=== PATIENT | female | born 1945 | race Caucasian/White ===

== ENCOUNTER 2020-10-13 19:55 | Emergency (ER) | payer MEDICARE, OTHER ==
--- NOTE | 2020-10-13 20:29 | EDM.PDOC ---
ED HPI GENERAL MEDICAL PROBLEM - General Chief Complaint: Chest Pain Stated Complaint: CATCH IN CHEST THAT MAKE HER COUGH Time Seen by Provider: 10/13/20 20:17 Source of Information: Reports: Patient, Family (spouse) History Limitations: Reports: No Limitations - History of Present Illness INITIAL COMMENTS - FREE TEXT/NARRATIVE: 75-year-old female presents to the ED complaining of recurrent bouts of central retrosternal chest discomfort. She states it is like a pinching type event that then makes her cough. The cough is nonproductive. It started about 3-1/2 weeks ago but has become more regular and frequent over the last 2 days. She is not suffering any odynophagia. It is not worsened by activity such as walking. She has a history of GERD and takes omeprazole 20 mg daily. She does report that she was on meloxicam daily for the last 23 days and finished it yesterday. She has no known heart disease but that is what brought her to the ED i.e. concern for heart attack. She denies any dyspnea on exertion. No known coronary artery disease. No history of COVID-19 illness. Onset: Gradual Onset Date: 09/19/20 Duration: Day(s):, Getting Worse (Were frequent and more intense the last 2 days. Central chest discomfort) Location: Reports: Chest (Central chest discomfort which is intermittent.) Quality: Reports: Other Severity: Moderate (Cry more as a pinching sensation suggestive of possible esophageal spasm.) Improves with: Reports: None Worsens with: Reports: None Context: Denies: Activity, Exercise, Lifting, Sick Contact, Trauma, Other Associated Symptoms: Reports: Chest Pain (Cough occurs after the pinching sensation in her retrosternal chest.), Cough. Denies: No Other Symptoms ( See history of present illness), Confusion, cough w sputum, Diaphoresis, Fever/Chills, Headaches, Loss of Appetite, Malaise, Nausea/Vomiting, Rash, Seizure, Shortness of Breath, Syncope, Weakness Treatments [employer]GER TRANSPORTATION: Reports: Other (see below) Middle Chest Pain Score (Numeric/FACES): 4 - Related Data Allergies Allergy/AdvReac Type Severity Reaction Status Date / Time phosphorus Allergy Nausea Uncoded 10/13/20 20:12 Home Meds: Home Meds Omeprazole 20 mg PO DAILY PRN 03/13/16 [History] Rosuvastatin Calcium [Crestor] 5 mg PO Q2D 03/13/16 [History] Dicyclomine [Bentyl] 20 mg PO Q6H PRN #10 tablet 10/13/20 [Rx] Past Medical History - Past Health History Medical/Surgical History: Denies Medical/Surgical History HEENT History: Reports: Impaired Vision Cardiovascular History: Reports: High Cholesterol Gastrointestinal History: Reports: GERD, Hiatal Hernia - Infectious Disease History Infectious Disease History: Reports: Chicken Pox, Measles, Mumps, Novel Coronavirus - Past Surgical History HEENT Surgical History: Reports: Naso-Sinus Surgery Female Surgical History: Reports: Hysterectomy Social & Family History - Tobacco Use Tobacco Use Status *Q: Never Tobacco User - Living Situation & Occupation Living situation: Reports: Occupation: Retired ED ROS GENERAL - Review of Systems Review Of Systems: See Below Constitutional: Denies: Fever, Chills, Malaise, Weakness, Fatigue, Decreased Appetite, Weight Loss HEENT: Reports: Glasses Respiratory: Reports: Cough. Denies: Shortness of Breath, Wheezing, Pleuritic Chest Pain, Sputum, Hemoptysis (Nonproductive) Cardiovascular: Reports: Chest Pain (Intermittent central chest discomfort that makes her cough.), Blood Pressure Problem. Denies: Claudication, Dyspnea on Exertion, Edema, Lightheadedness, Orthopnea, Palpitations Endocrine: Reports: No Symptoms GI/Abdominal: Reports: Constipation (History of GERD but well controlled with omeprazole daily.), Other : Reports: Frequency ( Rare problems with constipation), Incontinence (Occasional stress and urge components.) Musculoskeletal: Reports: No Symptoms Skin: Reports: No Symptoms Neurological: Reports: No Symptoms Psychiatric: Reports: No Symptoms Hematologic/Lymphatic: Reports: No Symptoms Immunologic: Reports: No Symptoms ED EXAM, GENERAL - Physical Exam Exam: See Below Exam Limited By: No Limitations General Appearance: Alert, WD/WN, No Apparent Distress, Other (Temperature is 36.2 degrees. Heart rate 72 in sinus respiratory 16 with O2 sats of 98% room air BP slightly elevated at 181/92. This subsequently come down to 129/68.) Eye Exam: Bilateral Eye: Normal Inspection (No scleral icterus or blepharal pallor.), PERRL Throat/Mouth: Normal Inspection, Normal Lips, Normal Teeth, Normal Oropharynx Head: Atraumatic, Normocephalic Neck: Normal Inspection, Supple, Non-Tender, Full Range of Motion. No: Lymphadenopathy (L), Lymphadenopathy (R) Respiratory/Chest: No Respiratory Distress, Lungs Clear, Normal Breath Sounds, No Accessory Muscle Use Cardiovascular: Normal Peripheral Pulses, Regular Rate, Rhythm, No Edema, No Gallop, No Murmur, No Rub, Other (Could not elicit any pain on firm palpation of her ribs or costochondral joints.) Peripheral Pulses: 2+: Carotid (L), Carotid (R), Posterior Tibial (L), Posterior Tibial (R), Dorsalis Pedis (L), Dorsalis Pedis (R) GI/Abdominal: Normal Bowel Sounds, Soft, Non-Tender, No Organomegaly, No Abnormal Bruit, No Mass, Pelvis Stable, Other (Healed infraumbilical midline scar from previous hysterectomy. Ovaries were retained.) Back Exam: Normal Inspection, Full Range of Motion. No: CVA Tenderness (L), CVA Tenderness (R) Extremities: Normal Inspection, Normal Range of Motion, Non-Tender, No Pedal Edema Neurological: Alert, Oriented, CN II-XII Intact, Normal Cognition Psychiatric: Normal Affect, Normal Mood Skin Exam: Warm, Dry, Intact, Normal Color, No Rash #1 Interpretation EKG Date: 10/13/20 Time: 20:23 Rhythm: NSR Rate (Beats/Min): 61 Cowden: LAD-Left Cowden Deviation (Left axis deviation of -41 degrees.) P-Wave: Enlarged (Left atrial hypertrophy pattern) QRS: Other (There is evidence of left ventricular perjury pattern with tall R waves in V1left anterior fascicular block pattern there is a Q wave in V1 normal Q wave in V2 and near Q wave in lead I. V3 with poor R wave progression after this. Give some consideration to a anteroseptal myocardial infarction in the past. Similarly there are new Q waves in leads III and aVF therefore consider old inferior wall myocardial infarction.) ST-T: Other (Unspecific T wave changes with flattening in aVF and V3.) QT: Normal EKG Interpretation Comments: Abnormal ECG Course - Vital Signs Last Recorded V/S: Last Vital Signs Temp 36.2 C 10/13/20 20:05 Pulse 68 10/13/20 22:19 Resp 16 10/13/20 22:19 BP 133/78 10/13/20 22:19 Pulse Ox 99 10/13/20 22:19 - Orders/Labs/Meds Labs: Laboratory Tests 10/13/20 10/13/20 10/13/20 Range/Units 20:37 20:37 20:37 WBC 4.99 (3.98-10.04) K/mm3 RBC 4.54 (3.98-5.22) M/mm3 Hgb 13.8 (11.2-15.7) gm/dl Hct 41.7 (34.1-44.9) % MCV 91.9 (79.4-94.8) fl MCH 30.4 (25.6-32.2) pg MCHC 33.1 (32.2-35.5) g/dl RDW Std Deviation 43.0 (36.4-46.3) fL Plt Count 136 L (182-369) K/mm3 MPV 11.7 (9.4-12.3) fl Neut % (Auto) 50.9 (34.0-71.1) % Lymph % (Auto) 31.7 (19.3-51.7) % [place] % (Auto) 14.4 H (4.7-12.5) % Eos % (Auto) 2.6 (0.7-5.8) Baso % (Auto) 0.2 (0.1-1.2) % Neut # (Auto) 2.54 (1.56-6.13) K/mm3 Lymph # (Auto) 1.58 (1.18-3.74) K/mm3 [place] # (Auto) 0.72 H (0.24-0.36) K/mm3 Eos # (Auto) 0.13 (0.04-0.36) K/mm3 Baso # (Auto) 0.01 (0.01-0.08) K/mm3 Sodium 145 (136-145) mEq/L Potassium 4.3 (3.5-5.1) mEq/L Chloride 108 H (98-107) mEq/L Carbon Dioxide 25 (21-32) mEq/L Anion Gap 16.3 H (5-15) BUN 24 H (7-18) mg/dL Creatinine 1.1 H (0.55-1.02) mg/dL Est Cr Clr Drug Dosing 40.09 mL/min Estimated GFR (MDRD) 48 (>60) mL/min BUN/Creatinine Ratio 21.8 H (14-18) Glucose 112 (83-115) mg/dL Calcium 9.7 (8.5-10.1) mg/dL Magnesium 2.0 (1.8-2.4) mg/dl Total Bilirubin 0.6 (0.2-1.0) mg/dL AST 20 (15-37) U/L ALT 29 (14-59) U/L Alkaline Phosphatase 65 (46-116) U/L CK-MB (CK-2) 3.9 H (0-3.6) ng/ml Troponin I < 0.017 (0.00-0.056) ng/mL C-Reactive Protein 0.2 (<1.0) mg/dL NT-Pro-B Natriuret Pep 89 (0-450) pg/mL Total Protein 6.6 (6.4-8.2) g/dl Albumin 3.6 (3.4-5.0) g/dl Globulin 3.0 gm/dL Albumin/Globulin Ratio 1.2 (1-2) Meds: Medications Discontinued Medications Generic Name Dose Route Start Last Admin Trade Name Freq PRN Reason Stop Dose Admin Dicyclomine HCl 20 mg 10/13/20 22:13 10/13/20 22:19 Bentyl PO 10/13/20 22:14 20 mg ONETIME ONE Administration - Radiology Interpretation Free Text/Narrative:: 75-year-old female attends the ED with recurrent bouts of central chest pinching discomfort. It is not associated with a feeling of need to burp or belch. She is not experiencing any odynophagia. It is right in the center of her sternum and she was concerned it may be her heart. The pain started about 3 weeks ago but has become more intense and more regular over the last 48 hours. Of note both her and her had COVID-19 diagnosed early July I believe August 09. Both suffered very minimal side effects from COVID-19 with nasal congestion cold symptoms minimal cough and no GI symptoms. There was transient loss of sense of taste and smell which is now recovered. Patient just finished a 23-day course of meloxicam but did not appreciate any increased heartburn or dyspepsia while on medication which he finished yesterday. She is also on omeprazole 20 mg once daily. She denies any pain when she deep breathes. She states when the tickle feeling occurs in her central chest it makes her cough. The cough is nonproductive. No hemoptysis. - Re-Assessments/Exams Free Text/Narrative Re-Assessment/Exam: 10/13/20 21:09 chest x-ray is done portable and is within normal limits. Lung parenchyma parenchyma are is clear. Cardiac silhouette is normal mediastinum is normal. 10/13/20 21:31 White count is normal at 4.99. Differential is 51% neutrophils. Hemoglobin 13.8 with hematocrit of 41.7. It is low normal at 136,000. Possibly a residual recent COVID-19 illness. Sodium is 145 with a potassium of 4.3. Chloride slightly elevated at 108. Bicarb 25. Anion gap is 16.3 with a BUN of 24 and creatinine of 1.1. GFR is 48. Glucose is 112 with a calcium of 9.7. Magnesium normal at 2.0. Liver function normal. CK-MB fraction mildly elevated at 3.9. Awaiting troponin I assessment. C-reactive protein is 0.2 BNP is 89 total protein is 6.6 with an albumin fraction of 3.6. 10/13/20 21:47 Troponin is less than 0.017. Departure - Departure Time of Disposition: 22:13 Disposition: Home, Self-Care 01 Reason for Transfer *Q: Other Condition: Fair Clinical Impression: Non-cardiac chest pain, Esophageal spasm Prescriptions: Dicyclomine [Bentyl] 20 mg PO Q6H PRN #10 tablet PRN Reason: intermittent cnetral chest fortino Instructions: Esophageal Spasm, Nonspecific Chest Pain, Adult, [id number] Referrals: Niels Jeffery MD [Primary Care Provider] - Forms: ED Department Discharge Additional Instructions: Evaluation in the emergency room tonight in regards to intermittent central chest discomfort which she described as a pinching sensation I interpret as a spasm-like sensation not associated with burping belching or heartburn. It does seem to make you cough. This may be residual from COVID-19 illness that you had in early July with inflammation of the vagus nerve that controls motility of the food pipe and stomach. Chest x-ray was within normal limits and evaluation of heart markers for heart attack were normal there were no blood clots in the lungs. Liver and kidneys are functioning normally as well. I think the other possibility is recent use of meloxicam for 3 weeks may have caused some i nflammation of the stomach and food pipe and cause esophageal spasm. At this time I suggest using her Prilosec 20 mg at bedtime. Use Bentyl 20 mg tablet by mouth every 6-8 hours as necessary for relief of similar type pain. If not better by Saturday next week then I want you to see your primary care practitioner to arrange a upper GI endoscopy to evaluate the inner aspect of the esophagus. Sepsis Event Note (ED) - Evaluation Sepsis Screening Result: No Definite Risk
[2020-10-13] MEDS ORDERED: Dicyclomine 10 MG Cap PO ONE (22:13)
[2020-10-13 22:20] VITALS: BP 133/78; PULSE 68
--- NOTE | 2020-10-14 08:03 | CR ---
Chest: Portable view of the chest was obtained. Comparison: No prior chest imaging is available. Heart size and mediastinum are normal. Lungs are clear with no acute parenchymal change. Slight scoliosis is noted within the spine with mild degenerative change within the spine. Impression: 1. Nothing acute is appreciated on portable chest x-ray. Diagnostic code #2
== END 2020-10-13 22:26 | disposition home or self-care (01) ==
LOC: JD.ED 19:55
DX: K22.4 Dyskinesia of esophagus (principal); E78.00 Pure hypercholesterolemia, unspecified; K21.9 Gastro-esophageal reflux disease without esophagitis; R94.31 Abnormal electrocardiogram [ECG] [EKG]; Z88.8 Allergy status to other drugs, medicaments and biological substances; Z79.899 Other long term (current) drug therapy; R06.02 Shortness of breath
CPT/HCPCS: 36415; 71045; 80053; 82553; 83735; 83880; 84484; 85025; 86140; 93005; 99285; A9270; 93010; 99284

== ENCOUNTER 2021-12-03 18:05 | Emergency (ER) | payer MEDICARE, OTHER ==
[2021-12-03 18:35] VITALS: BP 151/86; PULSE 87
[2021-12-03] MEDS ORDERED: Ondansetron 4 MG Tab.DIS PO ONE (19:19)
== END 2021-12-03 20:58 | disposition home or self-care (01) ==
LOC: JD.ED 18:05
DX: R11.0 Nausea (principal); E78.00 Pure hypercholesterolemia, unspecified; K21.9 Gastro-esophageal reflux disease without esophagitis; Z91.048 Other nonmedicinal substance allergy status; Z79.899 Other long term (current) drug therapy
CPT/HCPCS: 36415; 80053; 83690; 84484; 85025; 93005; 99285; A9270